=== PATIENT | male | born 2000 | race Caucasian/White ===

== ENCOUNTER 2019-07-16 21:37 | Emergency (ER) | payer MEDICAID, OTHER, SELFPAY ==
--- NOTE | 2019-07-16 22:09 | RAD ---
Exam: One view chest Left RIBS 2 views HISTORY: Fall. Pain. FINDINGS: 1. View chest: Normal cardiac silhouette. Lungs and pleural spaces are clear. No pneumothorax or acut e osseous abnormalities Left RIBS: No fracture. No cortical irregularity. No periosteal reaction. IMPRESSION: 1. No acute cardiopulmonary process. 2. No evidence of a left rib fracture.
== END 2019-07-16 22:47 | disposition home or self-care (01) ==
LOC: ERS 21:37
DX: S20.212A Contusion of left front wall of thorax, initial encounter (principal); V09.9XXA Pedestrian injured in unspecified transport accident, initial encounter

== ENCOUNTER 2023-05-01 22:12 | Emergency (ER) | payer SELFPAY ==
[2023-05-01] MEDS ORDERED: Ketorolac Tromethamine 30 MG/ML VIAL ONE (23:11)
[2023-05-01] MEDS ORDERED: Dexameth. Sod Phosp. 10 MG/ML (CHEMO USE ONLY) ONE (23:11)
[2023-05-01 23:43] LABS: SARS-CoV-2 NAA Rapid Test Not Detected (NotDetected)
[2023-05-01] MEDS ORDERED: Ipratropium/Albuterol 3 ML NEB ONE (23:57)
== END 2023-05-02 00:16 | disposition home or self-care (01) ==
LOC: ERS 22:12
DX: B34.9 Viral infection, unspecified (principal); J02.9 Acute pharyngitis, unspecified; R06.2 Wheezing; Z20.822 Contact with and (suspected) exposure to COVID-19
CPT/HCPCS: 71045; 87081; 87430; 96372; J1100; J1885; J7620